=== PATIENT | female | born 1945 | race Caucasian/White ===

== ENCOUNTER 2022-06-01 08:57 | Day surgery (SDC) | payer MEDICARE, OTHER ==
[~2022-06-01] VITALS: Ht 157.5 cm; Wt 52.8 kg
[~2022-06-01 08:57] MED LIST: CHOL10002; DAILY MULTIPLE1 EACH; LEVSOD50; LEVSOD75 PO; OXYACE5T PO; TRAM50; TRAZ50
[2022-06-01] MEDS ORDERED: CITALOPRAM HBR10 MG (09:41)
== END 2022-06-01 11:00 | disposition home or self-care (01) ==
LOC: ORSCSDS 08:57
PROVIDERS: Surgery
PROC: 0DJD8ZZ Inspection of Lower Intestinal Tract, Via Natural or Artificial Opening Endoscopic (ICD-10-PCS; principal; 2022-06-01 10:15)
DX: Z12.11 Encounter for screening for malignant neoplasm of colon (principal); Z86.010 Personal history of colon polyps; E03.9 Hypothyroidism, unspecified; Z87.891 Personal history of nicotine dependence; Z79.899 Other long term (current) drug therapy
CPT/HCPCS: J2704; J7120

== ENCOUNTER → 2022-12-10 | Outpatient (CLI) | payer OTHER ==
[~2022-12-10] MED LIST changes: +CITALOPRAM HBR10 MG
== END | disposition home or self-care (01) ==
LOC: LAB SHORT 07:58 → PLD 07:58
DX: D22.62 Melanocytic nevi of left upper limb, including shoulder (principal)
CPT/HCPCS: 88305

== ENCOUNTER 2025-03-25 07:30 | Day surgery (SDC) | payer OTHER ==
[~2025-03-25] VITALS: Ht 157.5 cm; Wt 56.7 kg
[~2025-03-25 07:30] MED LIST changes: +Balanced Salt Epinephrine Irrigation Solution 500 mL IR SCH; +Moxifloxacin HCL 0.5 MG/0.1 ML 0.4MLSYR LEFTEYE SCH; +Ondansetron 4 MG SoluTab MM PRN; +PHENYLEPHRINE\\TROPICAMIDE\\TETRACAINE OPHTHALMIC DILATING SOLN LEFTEYE PRN; +Povidone-Iodine 450 DROP/30 ML Solution LEFTEYE SCH; +Povidone-Iodine 450 DROP/30 ML Solution ONE; +Tetracaine HCl/Pf 0.5% Opth Soln 4 ml ONE; +Triamcinolone Inj Susp 40 MG / ML 1ML Vial INJ SCH; +Triamcinolone Inj Susp 40 MG / ML 1ML Vial ONE
--- NOTE | 2025-03-25 08:41 | NUR ---
03/25/25 0841 Naomy Estrada PT REPORTS ANXIETY LEVEL 0/10 PRIOR TO ADMINISTRATION OF VALIUM 10MG PO @ 0836. TETRACAINE IN AT 0839, PLEDGETT IN AT 0840. CONTINUOUS SPO2 AND HR MONITORING IN PLACE. CALL LIGHT IN PT'S HAND.
[2025-03-25] MEDS ORDERED: ACET500 PO (08:46)
--- NOTE | 2025-03-25 09:29 | NUR ---
03/25/25 0929 Libby Bermudez VITALS AT 0921 BP: 138/69 P: 65 O2: 100% WITH 6 LITERS OF BLOW BY OXYGEN
[2025-03-25 09:38] VITALS: BP 134/64
== END 2025-03-25 09:58 | disposition home or self-care (01) ==
LOC: ORSCSDS 07:30
PROVIDERS: Ophthalmology
PROC: 08RK3JZ Replacement of Left Lens with Synthetic Substitute, Percutaneous Approach (ICD-10-PCS; principal; 2025-03-25 09:30)
DX: H25.812 Combined forms of age-related cataract, left eye (principal); Z96.1 Presence of intraocular lens; Z87.891 Personal history of nicotine dependence; E78.5 Hyperlipidemia, unspecified; E03.9 Hypothyroidism, unspecified; Z79.899 Other long term (current) drug therapy
CPT/HCPCS: A9270; J3301; V2632